=== PATIENT | female | born 1965 | race Caucasian/White ===

== ENCOUNTER 2018-06-18 17:11 | Outpatient (REF) | payer SELFPAY ==
[2018-06-18 19:08] LABS: HCT 37.3 % (36.0-46.0); HGB 12.3 g/dL (12.0-15.5); Mean Corpuscular Hemoglobin 30.2 pg (27.0-33.0); Mean Corpuscular Volume 91.6 fL (80-95); Mean Platelet Volume 10.9 fL (8.0-11.0); Platelet Count 235 x1000/uL (130-400); RBC 4.07 m/cumm (4.00-5.20); RBC Distribution Width 12.6 % (11.7-14.6); White Blood Cell Count 4.11 k/cumm (4.4-10.8)
[2018-06-18 19:35] LABS: BUN 15 mg/dL (7-18); CREATININE 0.81 mg/dL (0.55-1.02); Calcium 8.8 mg/dL (8.5-10.1); Chloride 106 mmol/L (98-107); Glucose 79 mg/dL (70-100); Potassium 3.8 mmol/L (3.5-5.1); Sodium 143 mmol/L (136-145); TSH 2.43 uIU/mL (0.358-3.74)
== END 2018-06-18 17:31 ==
LOC: NCHCN 17:11
PROVIDERS: Visit Provider Physician Assistant Medical
DX: R00.2 Palpitations (principal)
CPT/HCPCS: 80048; 85027; 84443

== ENCOUNTER 2021-02-01 17:03 | Outpatient (REF) | payer OTHER, SELFPAY ==
[2021-02-04 15:24] LABS: Chlamydia Result Negative (Negative); GC Result Negative (Negative)
== END 2021-02-01 17:04 | disposition home or self-care (01) ==
LOC: NCHCN 17:03
PROVIDERS: Visit Provider Physician Assistant
DX: Z11.3 Encounter for screening for infections with a predominantly sexual mode of transmission (principal)
CPT/HCPCS: 87491; 87591

== ENCOUNTER 2021-02-06 16:37 | Outpatient (REF) | payer OTHER, SELFPAY ==
[2021-02-08 10:17] LABS: HIV-1/2 Ag & Ab Screen Negative (Negative)
[2021-02-08 10:23] LABS: Hepatitis C Ab w Rflx HCV PCR Negative (Negative)
[2021-02-08 11:34] LABS: Syphilis Serology (RPR) Negative (Negative)
== END 2021-02-06 16:38 | disposition home or self-care (01) ==
LOC: NCHCN 16:37
PROVIDERS: Visit Provider Physician Assistant
DX: Z11.3 Encounter for screening for infections with a predominantly sexual mode of transmission (principal); Z11.4 Encounter for screening for human immunodeficiency virus [HIV]; Z11.59 Encounter for screening for other viral diseases
CPT/HCPCS: 86803; 87389; 86592

== ENCOUNTER 2022-01-21 12:38 | Outpatient (CLI) | payer OTHER, SELFPAY ==
[2022-01-21 13:25] VITALS: BP 134/78; PULSE 83; RESP 16; TEMP 36.6; O2SAT 93
[2022-01-21 14:10] VITALS: BP 127/79; PULSE 80; RESP 16; O2SAT 97
[2022-01-21 14:40] VITALS: BP 124/75; PULSE 70; RESP 16; TEMP 36.6; O2SAT 96
== END 2022-01-21 12:39 | disposition home or self-care (01) ==
LOC: INF 12:40
PROVIDERS: Visit Provider Family Medicine
DX: U07.1 COVID-19 (principal)
CPT/HCPCS: 96374; Q0222

== ENCOUNTER 2025-05-29 15:43 | Outpatient (REF) | payer OTHER, SELFPAY ==
[2025-05-29 19:49] LABS: Abs Immature Grans 0.01 10^3/uL (0.0-0.06); HCT 39.3 % (36.0-46.0); HGB 12.7 g/dL (11.2-15.7); Immature Grans % 0.3 %; MCH 29.3 pg (27.0-33.0); MCHC 32.3 % (32.0-36.0); MCV 91 fL (80-95); MPV 11.3 fL (8.0-11.0); Platelet Count 238 10^3/uL (130-400); RBC 4.33 10^6/uL (3.93-5.22); RDW 12.2 % (11.7-14.6); RDW-SD 40.6 fL; WBC 3.45 10^3/uL (4.4-10.8)
[2025-05-29 20:38] LABS: Ferritin 201 ng/mL (8-252)
[2025-05-29 21:05] LABS: Hemoglobin A1C 5.0 % (<5.7)
[2025-05-30 08:15] LABS: Vitamin B12 339 pg/mL (193-986)
[2025-05-30 15:53] LABS: Calculated LDL 135 mg/dL (<100); Cholesterol 212 mg/dL (<200); HDL Cholesterol 67 mg/dL (>or=50); Triglyceride 51 mg/dL (<150)
[2025-05-30 16:05] LABS: Iron 79 ug/dL (50-170); Total Iron Binding Capacity 258 ug/dL (250-450); Transferrin Sat 31 % (15-50)
[2025-05-30 20:13] LABS: Folate 10.6 ng/mL (See Note)
== END 2025-05-29 15:44 | disposition home or self-care (01) ==
LOC: NCHCN 15:43
PROVIDERS: PCP Physician Assistant; Visit Provider Physician Assistant
DX: R68.2 Dry mouth, unspecified (principal); K14.6 Glossodynia; E78.5 Hyperlipidemia, unspecified
CPT/HCPCS: 80061; 82607; 82728; 82746; 83036; 83540; 83550; 85025; 86235